=== PATIENT | male | born 1945 | race Caucasian/White ===

== ENCOUNTER → 2016-04-14 | Outpatient (CLI) | payer OTHER ==
[~2016-04-14] MED LIST: /ATOR40TA PO; /MOM400 PO; /QUET25TA PO; ACET25TA8 PO; ALBU0.084 IN; ALBU17IN INH; ALBU17IN2 INH; ASPI81TA4 PO; ATOR40TA PO; BACL10TA2 PO; BACL5TA PO; BENI20TA5 PO; BIOF4GEL2 EX; BISA10SU PR; BUDE0.5S IN; BUDE0.5S6 INH; CIPR-250 PO; COLA50CA3 PO; CYCL10TA PO; DOCU100C PO; DRIS1CAP PO; DRIS50002 PO; FINA5TAB2 PO; FLEXERIL PO; GLIP5TAB2 PO; GLIP5TAB8 PO; INSUH10VL INJ; INSUH10VL SC; INSUHUMDS SC; INSULANT SC; IPRA2IN INH; LEVO75TA34 PO; LOVA1CAP16 PO; LOVA1CAP17 PO; MACR100C3 PO; MAGNSO PO; METF1000 PO; METO25TAB PO; METO50TA2 PO; MIRA33504 PO; MORP-38 PO; MORP-39 PO; MORP1CAP7 PO; MORP30TA34 PO; MSIR30TA PO; MULTCAP PO; MULTTAB4 PO; MYLASSUD PO; NITR4TASL SL; OCEA0.65; OCEA0.654; OMEP20CA3 PO; OXYB5TA PO; OXYB5TAB80 PO; PERF20NE2 IN; PERF20NE2 INH; POLY33502 PO; PRED10TA PO; PRIL20CA PO; PULM90IN INH; QUET1TAB7 PO; SENO8.6T2 PO; SPIR1CAP IN; SPIR1CAP INH; SUCR1TA PO; SYNT75TA PO; TAMS0.4C PO; TAMS0.4C2 PO; TRIL135C PO; TUMS500C PO; ZINC220C3 PO; ZINC220T PO
--- NOTE | 2016-04-14 12:35 | REP ---
ULTRASOUND GUIDED PARACENTESIS: The procedure was performed under the direct supervision of Dr. Martinez. The risks and benefits of the procedure were explained to the patient and informed consent was obtained. The largest pocket of fluid was localized in the left flank using ultrasound guidance. The skin was prepped and draped in a sterile fashion. 1% lidocaine was used as a local anesthetic. An 8-Faroese multi-side hole catheter was inserted using trocar technique. 3450 mL of yellow fluid was withdrawn and discarded. The patient tolerated the procedure well and there were no immediate complications. After the appropriate amount of monitored convalescence, the patient was discharged from the department. Reviewed by NELL Spencer 04/14/2016 01:43 PEdited and Signed by Edmund Martinez MD 04/14/2016 02:35 P
== END | disposition home or self-care (01) ==
LOC: M RADPRO 09:53
PROVIDERS: ATTEND Family Medicine
DX: R18.8 Other ascites (principal)
CPT/HCPCS: 49083; P9047